=== PATIENT | female | born 1965 ===

== ENCOUNTER → 2016-08-21 | Day surgery (SDC) | payer MEDICARE, OTHER ==
--- NOTE | 2016-08-17 13:02 | Pre-Procedure Note/Attestation ---
Pre-Procedure Note/Attestation Complete Prior to Procedure Planned Procedure: bilateral Procedure Narrative: 1- Ptosis correction, upper lids 2- Entropion correction upper lids 3- Blepharoplasty, upper lids Indications for Procedure Pre-Operative Diagnosis: 1- Ptosis ,upper lids 2- Entropion, upper lids 3- Blepharochalasis and dermatochalasis upper lids Attestation I attest that I discussed the nature of the procedure; its benefits; risks and complications; and alternatives (and the risks and benefits of such alternatives ), prior to the procedure, with the patient (or the patient's legal plastic products sales representative). I attest that, if there was a reasonable possibility of needing a blood transfusion, the patient (or the patient's legal plastic products sales representative) was given the [facility] standardized written summary, pursuant to the Elias Raquel Blood Safety Act ([place] Health and Safety Code # 1645, as amended). I attest that I re-evaluated the patient just prior to the surgery and that there has been no change in the patient's H&P, except as documented below: DONNY SANTIZO Aug 17, 2016 13:02
[~2016-08-21] VITALS: Ht 152.4 cm; Wt 77.1 kg
[2016-08-21] VITALS (8 sets, daily range): BP systolic 102–119; BP diastolic 55–67
[~2016-08-21] MED LIST: Akten 3.5% 1ml Btl BOTH EYES ONE; Akten 3.5% 1ml Btl ONE; BIOTIN10 MG PO; Bupivacaine 0.75% 30ml vial INJ ONE; GLUCOPHAGE XR750 MG ORAL; LR 1000ml 1,000 ML IV SCH; LR 1000ml 1,000 ML IVLG SCH; Lidocaine 2% 20mg/ml/Epi 0.005mg/ml 20ml vial ONE; Maxitrol Opth Oint 3.5gm BOTH EYES ONE; Midazolam 2mg/2ml Inj ONE; NS Irrig 1000ml IRRIG ONE; NS Irrig 1000ml ONE; Povidone-Iodine 5% opth solution ONE; Sterile Water Irrig 1000ml IRRIG ONE; fentaNYL 100 mcg/2 mL IV ONE; fentaNYL 100 mcg/2 mL IV PRN
--- NOTE | 2016-08-21 10:26 | Anethesia Preoperative Eval ---
Anesthesia Pre-op PMH/ROS General Date of Evaluation: Aug 21, 2016 Time of Evaluation: 09:50 Anesthesiologist: Freddy ASA Score: ASA 3 Mallampati Score Class I : Soft palate, uvula, fauces, pillars visible Class II: Soft palate, uvula, fauces visible Class III: Soft palate, base of uvula visible Class IV: Only hard plate visible Mallampati Classification: Class II Surgeon: Debbie Diagnosis: Bilateral Ptosis Surgical Procedure: Bilateral upper blepharoplasty Allergies: Coded Allergies: No Known Allergies (Unverified , 10/11/15) Past Medical History Cardiovascular: Denies: CAD, HTN, [place], arrhythmia, other, valve dz Pulmonary: Denies: COPD, NIMCO, asthma, other Gastrointestinal/Genitourinary: Denies: CRI, ESRD, GERD, other Neurologic/Psychiatric: Denies: CVA, TIA, dementia, depression/anxiety, other Endocrine: Reports: DM, Denies: hypothyroidism, other, steroids HEENT: Denies: [place] (L), [place] (R), cataract (L), cataract (R), glaucoma, other Hematology/Immune: Denies: DVT, anemia, bleeding disorder, other Musculoskeletal/Integumentary: Denies: DDD, DJD, OA, RA, edema, other PMH Narrative: DM Anesthesia Pre-op Phys. Exam Physician Exam Last Vital Signs Date Time Temp Pulse Resp B/P Pulse Ox O2 Delivery O2 Flow Rate FiO2 08/21/16 09:47 97.3 91 20 119/56 95 Room Air Constitutional: NAD Neurologic: CN 2-12 intact Cardiovascular: RRR, no M/R/G Respiratory: CTA Gastrointestinal: S/NT/ND Airway Exam Mallampati Score: Class II MO: full ROM: full Teeth: intact Anesthesia Pre-op A/P Studies Pre-op Studies: EKG - NSR Risk Assessment & Plan Assessment: Diabetic female for upper blepharoplasty Plan: MAC, TIVA Status Change Before Surgery: No Pre-Antibiotics Drug: None SAL ONOFRE M.D. Aug 21, 2016 10:26
--- NOTE | 2016-08-21 10:27 | Immediate Post-Op Evaluation ---
Immediate Post-Op Evalulation Immediate Post-Op Evalulation Procedure: Bilateral upper blepharoplasty Date of Evaluation: Aug 21, 2016 Time of Evaluation: 11:55 IV Fluids: 350 Blood Pressure Systolic: 110 Blood Pressure Diastolic: 55 Pulse Rate: 91 Respiratory Rate: 14 O2 Sat by Pulse Oximetry: 98 Temperature (Fahrenheit): 97.1 Pain Score (1-10): 0 Nausea: No Vomiting: No Complications No complication Patient Status: awake, patent, none Hydration Status: adequate Drug: None SAL ONOFRE M.D. Aug 21, 2016 10:27
--- NOTE | 2016-08-21 11:52 | Brief Operative Note ---
Immediate Post Operative Note Operative Note Chief Complaint: Droopy eyelid, Difficulty driving and reading Pre-op Diagnosis: 1- Ptosis ,upper lids 2- Entropion, upper lids 3- Blepharochalasis and dermatochalasis upper lids Procedure: 1- Ptosis correctio, upper lids 2- Entropion correction, upper lids Post-op Diagnosis: same as pre-op Surgeon: Donny Lewis MD. Vehicle Detailer: None Additional Surgeons: None Anesthesiologist: Dr. Hayes Anesthesia: local, MAC Specimen: none Complications: none Condition: stable Estimated Blood Loss: minimal Drains: none Implant(s) used?: DONNY Burleson Aug 21, 2016 11:52
--- NOTE | 2016-08-21 11:53 | 48 Hour Post Anesthesia Eval ---
Post Anesthesia Evaluation Procedure: Bilateral upper blepharoplasty Date of Evaluation: Aug 21, 2016 Time of Evaluation: 12:30 Blood Pressure Systolic: 110 0: 57 Pulse Rate: 94 Respiratory Rate: 15 O2 Sat by Pulse Oximetry: 99 Airway: patent Nausea: No Vomiting: No Pain Intensity: 0 Hydration Status: adequate Cardiopulmonary Status: Stable Mental Status/LOC: patient returned to baseline Follow-up Care/Observations: As per surgery Post-Anesthesia Complications: No anesthetic complication Follow-up care needed: N/A SAL ONOFRE M.D. Aug 21, 2016 11:53
--- NOTE | 2016-08-21 19:26 | Discharge Summary ---
Discharge Summary Discharge Summary Discharge Summary DATE OF ADMISSION:08/21/2016 DATE OF DISCHARGE:08/21/2016 REASON FOR HOSPITALIZATION:1- ptosis upper lids 2- Entropin upper lids 3- Escar formation upper lids SURGERY PERFORMED: 1- Ptosis correction upper lids 2- Entropion correction, upper lids 3- Escar removal, upper lids CONDITION IN THE HOSPITAL:The patient tolerated the surgery without complications. DISCHARGE CONDITION: The patient was stable at discharge. DISCHARGE MEDICATIONS: 1. Tobradex eye drops one drop q.i.d, 2. Maxitrol eye ointment apply to lids bid, O 3. Keflex capsule 500 mg one PO q8h. 4- Narco 5/325 mg one PO q6h PRN per pain POSTOPERATIVE ORDERS: The patient has to rest at home. No bending, No lifting, No watching Television tonight. POSTOPERATIVE FOLLOW UP: The patient will be followed in my office tomorrow morning at 7 o'clock. DONNY SANTIZO Aug 21, 2016 19:26
--- NOTE | 2016-08-21 19:53 | Operative Note - PDOC ---
Operative Note Operative Note Operative Report DATE OF OPERATION: 08/21/2016 SURGEON: DONNY SANTIZO MD. HARMONIC ANALYST: NONE ANESTHESIOLOGIST:Elias Hayes MD. ANESTHESIA: Local and monitored anesthetic care (MAC) PREOPERATIVE DIAGNOSIS: 1. Ptosis upper lid both eyes. 2. Entropion upper lid, both eyes. 3- Keloid tisuue formation, bilaterally.. POSTOPERATIVE DIAGNOSES: 1. Ptosis upper lid, both eyes. 2. Entropion, upper lid, both eyes. 3. Keloid formation bilaterally PROCEDURES PERFORMED: 1. Ptosis repair, upper lid, both eyes. 2.Entropion repair, upper lid, both eyes. 3. Kiloid removal, bilaterally. INDICATIONS FOR THE PROCEDURE: The patient is a 50 year-old Lady with a history of hypertension, diabetes, and arthritis. The patient doesn't have any allergy to medications. She is not smoker. She is takingglcophageXR, proscarand flutamid. The patient has PCOS and resistance diabetes.She had ptosis correction and blepharoplaty on10/11/2015. Later she developed keloid and blepharoptosis and entropion upper lids bilaterally. She had developed bad scar which did not resolved with steroid injection. Therefore the patient was taken to the operation room for escarectomy and ptosis rapair. INFORMED CONSENT: The procedure, the nature of the procedure, benefits, risks, complications, and alternatives were explained to the patient in detail in his language. He voiced understanding and accepted. Complications , including but not limited to, bleeding, infection, under-correction, over-correction, dry eye , loss of vision , and even loss of the eye , were explained in detail to the patient, who voiced understanding and accepted. Because there is no alternative and the only choice is surgery, there is no alternative for this procedure. DESCRIPTION OF THE SURGERY AND FINDINGS: After explaining the complications, the patient signed the consent form, which is in the chart. Following that, the patient was taken to the operating room in a stable condition. IV sedation was given by the anesthesiologist Dr. Hayes. After adequate anesthesia and sedation had been achieved, both eyes and upper face and lower face were prepped and draped in a sterile fashion for intraocular surgery. Following that, both upper lids were anesthetized with lidocaine 2% with epinephrine. The forehead was anesthetized with lidocaine 2% and epinephrine with injection of the lidocaine to the supraorbital nerve and forehead. After adequate anesthesia and sedation had been achieved, both upper lids were marked with a marking pen. The maged was placed 10mm above the ciliary line of the skin, and then 20mm of skin was left below the eyebrow line 10. Following that the skin and escar tissue was removed, and the skin was from the orbicularis oculi using the Bovie, and hemostasis was performed. Following that, the orbicularis oculi muscle was dissected to the levator palpebrae superioris. Following that, all the three fat compartment was sculptured conservatively. Following that, the levator palpebrae were tacked on each side about 4mm. With 5-0 Vicryl, three stitches were placed in each side. Following that, a groove was created in the tarsus of the eyelid on both sides. Following that, the groove was stitched with 7-0 Vicrl, and the direction of the lashes was changed from downward to upward. Hemostasis was performed, and at the end of the procedure the upper eyelid skin was stitched with 6-0 plain gut in interrupted stitches first. Following that, with 6-0 plain gut, continuous running stitches were placed between the interrupted stitches. The patient tolerated the procedure, and the bleeding was just about 3 ML in both sides. Before the skin is closed the muscle and the subcutaneous tissues were stitched with 6-0 Vicryl. Following that, the skin was stitched with 6-0 plain but in both sides. The patient tolerated the surgery without complications, and the ectropion of the lower lids was corrected and also ptosis and entropion of the upper lids and the droopy eyebrows and eyelids was corrected. Following that, the patient was taken to the recovery room in stable condition. Postoperative orders and directions were given to the patient. Ice compress was placed on the wounds. The patient will be discharged home after stabilization. The patient will be followed in my office tomorrow morning. DONNY SANTIZO Aug 21, 2016 19:53
--- NOTE | 2016-08-25 13:48 | Pre-op HX & Phy Repo 2 SIG ---
DATE OF ADMISSION: 08/21/2016 NOTE: VERY POOR INAUDIBLE AUDIO QUALITY DATE OF EVALUATION: 08/26/2016. REASON FOR EVALUATION: I was asked by Dr. Adrian Lewis to see this 50-year-old female, who is going for elective surgery on both . Patient has ptosis bilaterally. The patient was examined. Chart was reviewed. PAST MEDICAL HISTORY/REVIEW OF SYSTEMS: Remarkable for type 2 diabetes, depression, and obesity. No history of chest pain, palpitation, or heart attack. No hard sensation. Do not sense a respiratory problem. No asthma or bronchitis. No history of hypertension or stroke. No seizures. The patient has history of depression. No renal problem. No dysuria or renal failure. No thyroid and no GI problem. PAST SURGICAL HISTORY: in October 2015, see old chart. MEDICATIONS: . ALLERGIES: Not known. FAMILY HISTORY: Father from stroke and mother with hypertension. HABITS: Denies history of smoke or alcohol habits. No street drugs. PHYSICAL EXAMINATION: GENERAL: Alert, well-developed, well-nourished female in her 50s. VITAL SIGNS: Blood pressure is 119/56, temperature 97.3 degrees, pulse 91 and regular, respirations 20, and O2 saturation is 95% on room air. SKIN: Dry and warm. No rashes. LYMPHATICS: Lymph nodes not enlarged. HEENT: Head, normocephalic. . Tongue midline. NECK: Supple. Jugular vein distention. . CHEST: No deformity or asymmetry. LUNGS: Clear. No rales or rhonchi. HEART: Sinus rhythm. No ectopy. No murmur. No S3 or S4. ABDOMEN: Soft, benign. No palpable mass. No rebound. EXTREMITIES: No edema. NEUROLOGIC: . CVA nontender. . NERVOUS SYSTEM: No asymmetry. No tremor. LABORATORY AND DIAGNOSTIC DATA: Electrocardiogram, normal sinus rhythm . Blood sugar . The patient did not eat or drink from last night . IMPRESSION: 1. Ptosis bilaterally. 2. Adult onset diabetes mellitus, type 2. 3. Depression. 4. PLAN: Blepharoplasty bilaterally by Dr. Adrian Lewis . Vital signs stable. is normal. The patient blood sugar is controlled. The patient did not eat or drink from last night. The patient . Thank you very much, Dr. Lewis, for privilege to participate presurgical care of this interesting patient. Tania Henriquez M.D. DR: ISAEL JOB#: [id number] CC:
--- NOTE | 2016-08-26 18:28 | Cardiology Report ---
APPROVED REPORT EKG Measurement Heart [id number] Normal sinus rhythm Normal ECG
== END | disposition home or self-care (01) ==
LOC: SUR 09:25
DX: H02.034 Senile entropion of left upper eyelid (principal); H02.031 Senile entropion of right upper eyelid; L91.0 Hypertrophic scar; I10 Essential (primary) hypertension; E11.9 Type 2 diabetes mellitus without complications; M19.90 Unspecified osteoarthritis, unspecified site; E28.2 Polycystic ovarian syndrome; E66.9 Obesity, unspecified; F32.9 Major depressive disorder, single episode, unspecified; F41.9 Anxiety disorder, unspecified; Z88.8 Allergy status to other drugs, medicaments and biological substances
CPT/HCPCS: 11440; 67924; 93005; J2250; J3010; J3490; 94003; 94150

== ENCOUNTER 2016-12-25 06:57 | Day surgery (SDC) | payer MEDICARE, OTHER, SELFPAY ==
--- NOTE | 2016-12-13 17:07 | Pre-Procedure Note/Attestation ---
Pre-Procedure Note/Attestation Complete Prior to Procedure Planned Procedure: left Procedure Narrative: 1. CATARACT EXTRACTION WITH PHACO AND PC IOL IMPLANTATION, LEFT EYE. Indications for Procedure Pre-Operative Diagnosis: 1. CATARACT ,LEFT EYE. Attestation I attest that I discussed the nature of the procedure; its benefits; risks and complications; and alternatives (and the risks and benefits of such alternatives ), prior to the procedure, with the patient (or the patient's legal customer success representative). I attest that, if there was a reasonable possibility of needing a blood transfusion, the patient (or the patient's legal customer success representative) was given the [facility] standardized written summary, pursuant to the Elias Raquel Blood Safety Act ([place] Health and Safety Code # 1645, as amended). I attest that I re-evaluated the patient just prior to the surgery and that there has been no change in the patient's H&P, except as documented below: DONNY SANTIZO Dec 13, 2016 17:07
--- NOTE | 2016-12-24 17:07 | Pre-Procedure Note/Attestation ---
Pre-Procedure Note/Attestation Complete Prior to Procedure Planned Procedure: left Procedure Narrative: 1-Cataract extraction with phaco and PC IOL implantation, left eye. Indications for Procedure Pre-Operative Diagnosis: 1. CATARACT ,LEFT EYE. Attestation I attest that I discussed the nature of the procedure; its benefits; risks and complications; and alternatives (and the risks and benefits of such alternatives ), prior to the procedure, with the patient (or the patient's legal inside sales representative). I attest that, if there was a reasonable possibility of needing a blood transfusion, the patient (or the patient's legal inside sales representative) was given the [facility] standardized written summary, pursuant to the Elias Raquel Blood Safety Act ([place] Health and Safety Code # 1645, as amended). I attest that I re-evaluated the patient just prior to the surgery and that there has been no change in the patient's H&P, except as documented below: DONNY SANTIZO Dec 24, 2016 17:07
[2016-12-25] VITALS (8 sets, daily range): BP systolic 107–127; BP diastolic 58–74
[~2016-12-25] VITALS: Ht 152.4 cm; Wt 79.4 kg
[2016-12-25] MEDS: Gatifloxacin Opth Solution 0.5% LEFT EYE SCH ×3 (06:00→06:10)
[~2016-12-25 06:57] MED LIST changes: -Akten 3.5% 1ml Btl BOTH EYES ONE; +Akten 3.5% 1ml Btl LEFT EYE SCH; -Akten 3.5% 1ml Btl ONE; +BSS 15ml BTL ONE; +BSS 500ml btl ONE; -Bupivacaine 0.75% 30ml vial INJ ONE; +Carbachol 0.01% Op Soln 1.5ml vial ONE; +Ciprofloxacin Opth Soln ONE; +Dexamethasone 4mg/ml vial ONE; +Diclofenac Sod 0.1% Op Soln LEFT EYE SCH; +EPINEPHrine 1mg/1ml Amp ONE; +Gatifloxacin Opth Solution 0.5% LEFT EYE SCH; -LR 1000ml 1,000 ML IV SCH; -LR 1000ml 1,000 ML IVLG SCH; +Lidocaine 1% MPF 10mg/ml 5ml ONE; -Lidocaine 2% 20mg/ml/Epi 0.005mg/ml 20ml vial ONE; -Maxitrol Opth Oint 3.5gm BOTH EYES ONE; -Midazolam 2mg/2ml Inj ONE; -NS Irrig 1000ml IRRIG ONE; -NS Irrig 1000ml ONE; +Phenylephrine 10% Opth Soln 5ml LEFT EYE SCH; +Sodium Hyaluronate 10 mg/ml 0.85ml ONE; -Sterile Water Irrig 1000ml IRRIG ONE; +Tetracaine 0.5% Opth Soln ONE; +Tropicamide 1% Opth Soln LEFT EYE SCH; +Vigamox Opth Soln LEFT EYE SCH; +acetaZOLAMIDE 125mg tab ORAL ONE; -fentaNYL 100 mcg/2 mL IV ONE; -fentaNYL 100 mcg/2 mL IV PRN
[2016-12-25] MEDS ORDERED: DiphenhydrAMINE 50mg/ml Inj ONE (07:18)
[2016-12-25] MEDS ORDERED: Diclofenac Sod 0.1% Op Soln ONE (07:20)
[2016-12-25] MEDS ORDERED: Tropicamide 1% Opth Soln ONE (07:20)
[2016-12-25] MEDS ORDERED: Phenylephrine 10% Opth Soln 5ml ONE (07:20)
[2016-12-25] MEDS ORDERED: Akten 3.5% 1ml Btl ONE (07:20)
[2016-12-25] MEDS ORDERED: Gatifloxacin Opth Solution 0.5% ONE (07:20)
[2016-12-25] MEDS: Tropicamide 1% Opth Soln LEFT EYE SCH ×3 (07:44→08:02)
[2016-12-25] MEDS: Phenylephrine 10% Opth Soln 5ml LEFT EYE SCH ×3 (07:44→08:02)
[2016-12-25] MEDS: Akten 3.5% 1ml Btl LEFT EYE SCH ×3 (07:44→08:01)
[2016-12-25] MEDS: Diclofenac Sod 0.1% Op Soln LEFT EYE SCH ×3 (07:45→08:01)
--- NOTE | 2016-12-25 07:52 | Anethesia Preoperative Eval ---
Anesthesia Pre-op PMH/ROS General Date of Evaluation: Dec 25, 2016 Anesthesiologist: Daniel Mallampati Score Class I : Soft palate, uvula, fauces, pillars visible Class II: Soft palate, uvula, fauces visible Class III: Soft palate, base of uvula visible Class IV: Only hard plate visible Mallampati Classification: Class II Surgeon: Debbie Diagnosis: Left cataract Surgical Procedure: Left cataract extraction with IOL Anesthesia History: none Family History: no anesthesia problems Allergies: Coded Allergies: No Known Allergies (Unverified , 12/24/16) Medications: see eMAR Past Medical History Cardiovascular: Denies: CAD, HTN, [place], arrhythmia, other, valve dz Pulmonary: Denies: COPD, NIMCO, asthma, other Gastrointestinal/Genitourinary: Denies: CRI, ESRD, GERD, other Neurologic/Psychiatric: Reports: depression/anxiety, Denies: CVA, TIA, dementia, other Endocrine: Reports: DM, Denies: hypothyroidism, other, steroids HEENT: Reports: cataract (L), cataract (R), Denies: [place] (L), [place] (R), glaucoma, other Hematology/Immune: Denies: DVT, anemia, bleeding disorder, other Musculoskeletal/Integumentary: Reports: OA, Denies: DDD, DJD, RA, edema, other PSxH Narrative: T&A, bilateral blepharoplasty Anesthesia Pre-op Phys. Exam Physician Exam see chart Constitutional: NAD Cardiovascular: RRR Respiratory: CTA Airway Exam Mallampati Score: Class II MO: full ROM: limited Anesthesia Pre-op A/P Labs see chart Studies Pre-op Studies: EKG - sr Risk Assessment & Plan Assessment: ASA II Plan: MAC Status Change Before Surgery: No Pre-Antibiotics Drug: N/A ISAURO HUITRON M.D. Dec 25, 2016 07:52
[2016-12-25] MEDS ORDERED: LR 1000ml 1,000 ML IVLG SCH (07:55)
[2016-12-25] MEDS ORDERED: DiphenhydrAMINE 50mg/ml Inj IVP PRN (08:00)
[2016-12-25 08:19] LABS: BASOPHILS % (AUTO) 0.8 % (0.0-2.0); LYMPHOCYTES % (AUTO) 45.4 % (20.0-45.0); MEAN CORPUSCULAR HEMOGLOBIN 30.1 PG (27.0-31.0); MEAN CORPUSCULAR HGB CONC 32.9 G/DL (32.0-36.0); MEAN CORPUSCULAR VOLUME 92 FL (80-99); MEAN PLATELET VOLUME 8.2 FL (6.5-10.1); NEUTROPHILS % (AUTO) 41.8 % (45.0-75.0); PLATELET COUNT 261 K/UL (150-450); RED BLOOD COUNT 4.24 M/UL (4.20-5.40); RED CELL DISTRIBUTION WIDTH 11.7 % (11.6-14.8); WHITE BLOOD COUNT 10.6 K/UL (4.8-10.8)
[2016-12-25 08:26] LABS: ANION GAP 13 (5-15); CALCIUM 8.3 mg/dL (8.6-10.2); CARBON DIOXIDE 20 mEQ/L (20-30); CHLORIDE 101 mEQ/L (98-107); CREATININE 0.4 mg/dL (0.5-0.9); GLOMERULAR FILTRATION RATE > 60 mL/min (>60); HEMOLYSIS 3; POTASSIUM 3.9 mEQ/L (3.4-4.9); SODIUM 134 mEQ/L (135-145)
--- NOTE | 2016-12-25 08:26 | Immediate Post-Op Evaluation ---
Immediate Post-Op Evalulation Immediate Post-Op Evalulation Procedure: Left cataract extraction with IOL Date of Evaluation: Dec 25, 2016 Time of Evaluation: 09:16 IV Fluids: 200 Blood Products: 0 Estimated Blood Loss: 0 Urinary Output: 0 Blood Pressure Systolic: 123 Blood Pressure Diastolic: 58 Pulse Rate: 103 Respiratory Rate: 16 O2 Sat by Pulse Oximetry: 97 Temperature (Fahrenheit): 97.2 Pain Score (1-10): 0 Nausea: No Vomiting: No Complications 0 Patient Status: awake, reacts, patent, none Hydration Status: adequate Drug: N/A ISAURO HUITRON M.D. Dec 25, 2016 08:26
--- NOTE | 2016-12-25 08:26 | 48 Hour Post Anesthesia Eval ---
Post Anesthesia Evaluation Procedure: Left cataract extraction with IOL Date of Evaluation: Dec 25, 2016 Blood Pressure Systolic: 118 0: 62 Pulse Rate: 101 Respiratory Rate: 16 Temperature (Fahrenheit): 97.2 O2 Sat by Pulse Oximetry: 96 Airway: patent Nausea: No Vomiting: No Pain Intensity: 0 Hydration Status: adequate Cardiopulmonary Status: at [place] Mental Status/LOC: patient returned to baseline Post-Anesthesia Complications: 0 Follow-up care needed: ready to discharge ISAURO HUITRON M.D. Dec 25, 2016 08:26
[2016-12-25] MEDS ORDERED: Lidocaine 1% MPF 10mg/ml 5ml ONE (08:30)
[2016-12-25] MEDS ORDERED: Sterile Water Irrig 1000ml IRRIG ONE (08:30)
[2016-12-25] MEDS ORDERED: Midazolam 2mg/2ml Inj ONE (08:30)
[2016-12-25] MEDS ORDERED: NS Irrig 1000ml ONE (08:30)
[2016-12-25] MEDS ORDERED: fentaNYL 100 mcg/2 mL IV ONE (08:30)
[2016-12-25] MEDS ORDERED: LR 1000ml ONE (08:30)
[2016-12-25] MEDS ORDERED: Sodium Hyaluronate 10 mg/ml 0.85ml ONE (08:54)
--- NOTE | 2016-12-25 09:15 | Discharge Summary ---
Discharge Summary Discharge Summary Discharge Summary DATE OF ADMISSION:12/25/2016 DATE OF DISCHARGE:12/25/2016 REASON FOR HOSPITALIZATION: Cataract left eye SURGERY PERFORMED: Cataract extraction with phaco and PC IOL implantation, left eye CONDITION IN THE HOSPITAL:The patient tolerated the surgery without complications. DISCHARGE CONDITION: The patient was stable at discharge. DISCHARGE MEDICATIONS: 1. Vigamox eye drops one drop q.i.d, left eye 2. Prednisolone one drop q.i.d, left eye 3. Acular, one dorop q4h, left eye POSTOPERATIVE ORDERS: The patient has to rest at home. No bending, No lifting, No watching Television tonight. POSTOPERATIVE FOLLOW UP: The patient will be followed in my office tomorrow morning at 7 o'clock. DONNY SANTIZO Dec 25, 2016 09:15
--- NOTE | 2016-12-25 09:18 | Brief Operative Note ---
Immediate Post Operative Note Operative Note Chief Complaint: Blurry vision difficulty reading and driving, left eye Pre-op Diagnosis: 1. CATARACT ,LEFT EYE. Procedure: Cataract extraction with phaco and PC IOl implantation, left eye Post-op Diagnosis: same as pre-op Surgeon: Donny Lewis MD. Ui Application Developer: None Additional Surgeons: None Anesthesiologist: Dr. Sanchez Anesthesia: MAC Specimen: none Complications: none Condition: stable Estimated Blood Loss: none Drains: none Implant(s) used?: Yes - Multifocal [id number] PC IOl implanted in the left eye without complication DONNY LEWIS Dec 25, 2016 09:17
--- NOTE | 2016-12-26 02:46 | Operative Note - Dictated ---
DATE OF OPERATION: 12/25/2016 FACILITY: [facility]. SURGEON: Adrian Lewis M.D. SURVEILLANCE INSPECTOR: None. ANESTHESIOLOGIST: Dr. Sanchez. ANESTHESIA: Monitored anesthesia care (MAC). PREOPERATIVE DIAGNOSIS: Cataract, left eye. POSTOPERATIVE DIAGNOSIS: Cataract, left eye. SURGERY PERFORMED: Cataract extraction with phacoemulsification and posterior chamber intraocular lens implantations in the left eye. INDICATION FOR SURGERY: The patient is a 51-year-old lady with history of diabetes mellitus, on metformin, hypertension, and hypercholesteremia. She is taking simvastatin, Diovan, and aspirin. She has had ptosis correction one year ago and she is happy with the result. Now, she is complaining of blurry vision in the left eye. On exam of the left eye, the cornea is clear. Anterior chamber is clean and quiet. Pupillary reflex is normal. There is no RAPD. There is 3+ nuclear sclerosis and 2+ cortical cataract. Funduscopy shows normal optic disc, normal macula, and periphery retina is flat. To improve her vision in the left eye, the cataract has to be removed and posterior chamber intraocular lens has to be implanted. INFORMED CONSENT: The nature of the surgery, risks, benefits, alternatives, and potential complications were all explained in detail to the patient. The potential complications including, but not limited to bleeding, infection, posterior capsular rupture, lens subluxation, flat anterior chamber, iris prolapse, uveitis, corneal edema, macular edema, endophthalmitis, retinal detachment, loss of vision, and even loss of the eye were all explained in detail to the patient. The patient voiced understanding and accepted all the complications. The alternatives including accommodating lenses, multifocal lenses, toric lens, and conventional cataract surgery with limbal relaxing incision (LRI) for treatment of astigmatism were all explained in detail to the patient. The patient voiced understanding and accepted all those explanation. The patient elected to have cataract surgery with insertion of a multifocal lens, ZLB00 that the patient was agree with ZLB00. DESCRIPTION OF SURGERY AND FINDINGS: Following that, the patient was taken to the operation room in a stable condition. Lidocaine gel Akten 3.5% was applied to the conjunctivae of the left eye. IV sedation was given by the anesthesiologist, Dr. Sanchez. After adequate anesthesia and sedation had been achieved, the left eye was prepped and draped in an usual and sterile fashion for intraocular surgery. Following that, a speculum was placed in the left eye. Following that, a Super Sharp knife was used to create a side port. Following that, 1% lidocaine without preservative (MPF) was injected into the anterior chamber. Following that, viscoelastic agent Healon was injected into the anterior chamber. Following that, a clear corneal temporal keratotomy was performed with a 2.8 mm keratome. Following that, viscoelastic agent was injected into the anterior chamber again. Following that, Vision Blue was injected under the viscoelastic agent to stain the anterior capsule of the lens. Following that, a new fresh clear viscoelastic agent was injected into the anterior chamber again. Under the clear viscoelastic agent, an anterior capsulotomy was performed in the fashion of capsulorrhexis beautifully. Following that, all viscoelastic agent was removed from the anterior chamber and hydrodissection and hydrodelineation was performed with balanced salt solution and the nucleus was freed in toto. Following that, viscoelastic agent was injected into the anterior chamber again. Under the viscoelastic agent, anterior capsulotomy was performed in the fashion of capsulorrhexis beautifully. Following that, viscoelastic agent was removed from the anterior chamber. Following that, using balanced salt solution, hydrodissection and hydrodelineation was performed and the nucleus was freed. Following that, new viscoelastic agent was injected into the anterior chamber to protect the endothelium of the cornea. Following that, using phacoemulsification machine in the fashion of horizontal chop, the nucleus was removed in toto. Following that, the cortical material was removed from the capsular bag with irrigation and aspiration unit and the capsular bag was polished. Following that, the capsular bag was filled with viscoelastic agent Healon. Following that, a +16 diopter ZLB00 foldable PCIOL with serial number #[id number] was inserted into the capsular bag. Using a Sinskey hook, the lens was manipulated and put in the proper position. Following that, the viscoelastic agent was removed from the anterior and posterior part of the lens and the anterior chamber was filled with balanced salt solution. The wound was hydrated with balanced salt solution. The wound was checked for leakage and there was no leakage. Vigamox eye drops were applied to the conjunctiva of the left eye. The patient tolerated the surgery without complications. At the end of the surgery, the eye was patched with a clear sterile fenestrated shield. Following that, the patient was transferred to the recovery room. In the recovery room, 125 mg Diamox was given by mouth stat. Postoperative orders and directions were given to the patient. The patient will be discharged home upon stabilization. The patient will be followed in my office tomorrow morning at 10 a.m. Adrian Lewis M.D. DR: TANIA JOB#: [id number] CC:
== END 2016-12-25 12:25 | disposition home or self-care (01) ==
LOC: SUR 06:57
DX: H26.9 Unspecified cataract (principal); E11.9 Type 2 diabetes mellitus without complications; Z79.84 Long term (current) use of oral hypoglycemic drugs; E78.00 Pure hypercholesterolemia, unspecified; M19.90 Unspecified osteoarthritis, unspecified site; E66.9 Obesity, unspecified; Z68.34 Body mass index [BMI] 34.0-34.9, adult; F32.9 Major depressive disorder, single episode, unspecified; F41.9 Anxiety disorder, unspecified
CPT/HCPCS: 36415; 66984; 80048; 81025; 82962; 85025; J0171; J1100; J1200; J2250; J3010; J7120; V2632; 94003; 94150

== ENCOUNTER 2017-02-12 07:25 | Day surgery (SDC) | payer MEDICARE, OTHER, SELFPAY ==
--- NOTE | 2017-02-08 12:46 | Pre-Procedure Note/Attestation ---
Pre-Procedure Note/Attestation Complete Prior to Procedure Planned Procedure: right Procedure Narrative: 1. CATARACT EXTRACTION WITH PHACO AND PC IOL IMPLANTATION, RIGHT EYE. 2.LIMBAL RELAXING INCISION, RIGHT EYE. Indications for Procedure Pre-Operative Diagnosis: 1. CATARACT , RIGHT EYE. 2. ASTIGMATISM, RIGHT EYE. Attestation I attest that I discussed the nature of the procedure; its benefits; risks and complications; and alternatives (and the risks and benefits of such alternatives ), prior to the procedure, with the patient (or the patient's legal lead generation representative). I attest that, if there was a reasonable possibility of needing a blood transfusion, the patient (or the patient's legal lead generation representative) was given the [place] [employer] standardized written summary, pursuant to the Elias Raquel Blood Safety Act ([place] Health and Safety Code # 1645, as amended). I attest that I re-evaluated the patient just prior to the surgery and that there has been no change in the patient's H&P, except as documented below: DONNY SANTIZO Feb 08, 2017 12:46
[2017-02-12] VITALS (7 sets, daily range): BP systolic 96–124; BP diastolic 52–67
[~2017-02-12] VITALS: Ht 152.4 cm; Wt 81.6 kg
[~2017-02-12 07:25] MED LIST changes: -Akten 3.5% 1ml Btl LEFT EYE SCH; +Akten 3.5% 1ml Btl ONE; -Ciprofloxacin Opth Soln ONE; -Diclofenac Sod 0.1% Op Soln LEFT EYE SCH; -Gatifloxacin Opth Solution 0.5% LEFT EYE SCH; +Ketorolac Tromethamine Opth Soln ONE; -Phenylephrine 10% Opth Soln 5ml LEFT EYE SCH; +Phenylephrine 10% Opth Soln 5ml ONE; -Tropicamide 1% Opth Soln LEFT EYE SCH; +Tropicamide 1% Opth Soln ONE; -Vigamox Opth Soln LEFT EYE SCH; +Vigamox Opth Soln ONE
[2017-02-12] MEDS: Vigamox Opth Soln RIGHT EYE SCH ×3 (07:39→07:50)
[2017-02-12] MEDS: Tropicamide 1% Opth Soln RIGHT EYE SCH ×3 (07:39→07:50)
[2017-02-12] MEDS: Ketorolac Tromethamine Opth Soln RIGHT EYE SCH ×3 (07:39→07:50)
[2017-02-12] MEDS: Phenylephrine 10% Opth Soln 5ml RIGHT EYE SCH ×3 (07:39→07:49)
[2017-02-12] MEDS: Akten 3.5% 1ml Btl RIGHT EYE SCH ×3 (07:39→07:50)
[2017-02-12] MEDS ORDERED: Propofol 200mg/20ml IV ONE (08:00)
[2017-02-12] MEDS ORDERED: NS Irrig 1000ml ONE (08:00)
[2017-02-12] MEDS ORDERED: Lidocaine 1% MPF 10mg/ml 5ml ONE (08:00)
[2017-02-12] MEDS ORDERED: Sterile Water Irrig 1000ml IRRIG ONE (08:00)
[2017-02-12] MEDS ORDERED: LR 1000ml ONE (08:00)
[2017-02-12] MEDS ORDERED: Alfentanil 2ml Inj ONE (08:00)
[2017-02-12] MEDS ORDERED: Midazolam 2mg/2ml Inj ONE (08:00)
[2017-02-12 08:05] LABS: LYMPHOCYTES % (AUTO) 49.5 % (20.0-45.0); MEAN CORPUSCULAR HGB CONC 33.9 G/DL (32.0-36.0); MEAN CORPUSCULAR VOLUME 91 FL (80-99); MEAN PLATELET VOLUME 7.4 FL (6.5-10.1); MONOCYTES % (AUTO) 9.5 % (1.0-10.0); NEUTROPHILS % (AUTO) 39.1 % (45.0-75.0); PLATELET COUNT 276 K/UL (150-450); RED CELL DISTRIBUTION WIDTH 12.2 % (11.6-14.8); WHITE BLOOD COUNT 12.6 K/UL (4.8-10.8)
[2017-02-12 08:10] LABS: ANION GAP 14 (5-15); CALCIUM 9.1 mg/dL (8.6-10.2); CARBON DIOXIDE 22 mEQ/L (20-30); CHLORIDE 105 mEQ/L (98-107); CREATININE 0.8 mg/dL (0.5-0.9); GLOMERULAR FILTRATION RATE > 60 mL/min (>60); HEMOLYSIS 0; SODIUM 141 mEQ/L (135-145)
[2017-02-12] MEDS ORDERED: LR 1000ml 1,000 ML IVLG SCH (08:18)
--- NOTE | 2017-02-12 08:18 | Anethesia Preoperative Eval ---
Anesthesia Pre-op PMH/ROS General Date of Evaluation: Feb 12, 2017 Time of Evaluation: 08:01 Anesthesiologist: Leslie ASA Score: ASA 3 Mallampati Score Class I : Soft palate, uvula, fauces, pillars visible Class II: Soft palate, uvula, fauces visible Class III: Soft palate, base of uvula visible Class IV: Only hard plate visible Mallampati Classification: Class II Surgeon: Debbie Diagnosis: Cat OD Surgical Procedure: Cat Ext IOL OD Anesthesia History: none Family History: no anesthesia problems Allergies: Coded Allergies: No Known Allergies (Unverified , 12/24/16) Medications: see eMAR Past Medical History Neurologic/Psychiatric: Reports: depression/anxiety Endocrine: Reports: DM HEENT: Reports: cataract (L), cataract (R) PSxH Narrative: Eye SxX4 Anesthesia Pre-op Phys. Exam Physician Exam Last Vital Signs Date Time Temp Pulse Resp B/P (MAP) Pulse Ox O2 Delivery O2 Flow Rate FiO2 02/12/17 07:47 97.7 92 19 124/62 99 Room Air Constitutional: NAD Neurologic: CN 2-12 intact Cardiovascular: RRR Respiratory: CTA Gastrointestinal: S/NT/ND Airway Exam Mallampati Score: Class II MO: full ROM: limited Teeth: intact Anesthesia Pre-op A/P Labs Hematology Test 02/12/17 07:46 White Blood Count 12.6 K/UL (4.8-10.8) H Red Blood Count 4.20 M/UL (4.20-5.40) Hemoglobin 13.0 G/DL (12.0-16.0) Hematocrit 38.3 % (37.0-47.0) Mean Corpuscular Volume 91 FL (80-99) Mean Corpuscular Hemoglobin 31.0 PG (27.0-31.0) Mean Corpuscular Hemoglobin Concent 33.9 G/DL (32.0-36.0) Red Cell Distribution Width 12.2 % (11.6-14.8) Platelet Count 276 K/UL (150-450) Mean Platelet Volume 7.4 FL (6.5-10.1) Neutrophils (%) (Auto) 39.1 % (45.0-75.0) L Lymphocytes (%) (Auto) 49.5 % (20.0-45.0) H Monocytes (%) (Auto) 9.5 % (1.0-10.0) Eosinophils (%) (Auto) 1.0 % (0.0-3.0) Basophils (%) (Auto) 1.0 % (0.0-2.0) Chemistry Test 02/12/17 07:46 Sodium Level Pending Potassium Level Pending Chloride Level Pending Carbon Dioxide Level Pending Blood Urea Nitrogen Pending Creatinine Pending Estimat Glomerular Filtration Rate Pending Glucose Level Pending Calcium Level Pending Risk Assessment & Plan Assessment: ASA 3 Plan: GA Status Change Before Surgery: Herber Godoy MD Feb 12, 2017 08:18
--- NOTE | 2017-02-12 08:20 | Immediate Post-Op Evaluation ---
Immediate Post-Op Evalulation Immediate Post-Op Evalulation Procedure: Cat Ext IOL OD Date of Evaluation: Feb 12, 2017 Time of Evaluation: 09:12 IV Fluids: 500 LR Blood Products: 0 Estimated Blood Loss: 1 Urinary Output: 0 Blood Pressure Systolic: 111 Blood Pressure Diastolic: 52 Pulse Rate: 107 Respiratory Rate: 16 O2 Sat by Pulse Oximetry: 97 Temperature (Fahrenheit): 97.8 Pain Score (1-10): 1 Nausea: No Vomiting: No Complications 0 Patient Status: awake, reacts, patent, none Hydration Status: adequate Herber Nelson MD Feb 12, 2017 08:20
--- NOTE | 2017-02-12 08:21 | 48 Hour Post Anesthesia Eval ---
Post Anesthesia Evaluation Procedure: Cat Ext IOL OD Date of Evaluation: Feb 12, 2017 Time of Evaluation: 11:21 Blood Pressure Systolic: 108 0: 52 Pulse Rate: 109 Respiratory Rate: 18 Temperature (Fahrenheit): 98.2 O2 Sat by Pulse Oximetry: 99 Airway: patent Nausea: No Vomiting: No Pain Intensity: 1 Hydration Status: adequate Cardiopulmonary Status: Stable Mental Status/LOC: patient returned to baseline Follow-up Care/Observations: 0 Post-Anesthesia Complications: 0 Follow-up care needed: ready to discharge Herber Nelson MD Feb 12, 2017 08:21
[2017-02-12] MEDS ORDERED: Metoclopramide 10mg/2ml Inj IVP PRN (08:30)
[2017-02-12] MEDS ORDERED: Midazolam 2mg/2ml Inj IVP PRN (08:30)
[2017-02-12] MEDS ORDERED: Norco 5mg/325mg tab ORAL PRN (08:30)
[2017-02-12] MEDS ORDERED: Ketorolac 60mg Inj IV PRN (08:30)
[2017-02-12] MEDS ORDERED: Atropine Inj 1mg/10ml Syr IV PRN (08:30)
[2017-02-12] MEDS ORDERED: Meperidine 25mg/0.5ml Inj (FOR RIGORS ONLY) IV PRN (08:30)
[2017-02-12] MEDS ORDERED: fentaNYL 100 mcg/2 mL IV PRN (08:30)
[2017-02-12] MEDS ORDERED: LORazepam Inj 2mg/ml 1ml IV PRN (08:30)
[2017-02-12] MEDS ORDERED: oxyCODONE HCL/Acetaminophen 5/325mg ORAL PRN (08:30)
[2017-02-12] MEDS ORDERED: Norco 7.5mg/325mg tab ORAL PRN (08:30)
[2017-02-12] MEDS ORDERED: Hydromorphone 0.5mg/0.5ml inj IVP PRN (08:30)
[2017-02-12] MEDS ORDERED: DiphenhydrAMINE 50mg/ml Inj IVP PRN (08:30)
[2017-02-12] MEDS ORDERED: Ketorolac 30mg Inj IV PRN (08:30)
--- NOTE | 2017-02-12 09:00 | Discharge Summary ---
Discharge Summary Discharge Summary Discharge Summary DATE OF ADMISSION: 02/12/2017 DATE OF DISCHARGE: 02/12/2017 REASON FOR HOSPITALIZATION: cataract, right eye SURGERY PERFORMED: Cataract extraction with phaco and PC IOL implantation, right eye CONDITION IN THE HOSPITAL:The patient tolerated the surgery without complications. DISCHARGE CONDITION: The patient was stable at discharge. DISCHARGE MEDICATIONS: 1. Vigamox eye drops one drop q.i.d, right eye 2. Prednisolone one drop q.i.d, right eye 3. Ilevro one drop qd, right eye POSTOPERATIVE ORDERS: The patient has to rest at home. No bending, No lifting, No watching Television tonight. POSTOPERATIVE FOLLOW UP: The patient will be followed in my office tomorrow morning at 7 o'clock. DONNY SANTIZO Feb 12, 2017 09:00
--- NOTE | 2017-02-12 09:04 | Brief Operative Note ---
Immediate Post Operative Note Operative Note Chief Complaint: Blurry right eye, difficulty driving and reading, right eye Pre-op Diagnosis: 1. CATARACT , RIGHT EYE. 2. ASTIGMATISM, RIGHT EYE. Procedure: Cataract extraction with phaco and PC IOl implantation, right eye Post-op Diagnosis: same as pre-op Surgeon: Donny Lewis MD Photo Equipment Technician: None Additional Surgeons: None Anesthesiologist: Dr. Nelson Anesthesia: MAC Specimen: none Complications: none Condition: stable Fluids: 500 ml Estimated Blood Loss: none Drains: none Packing: None Implant(s) used?: Yes - Multifocal PC IOL implanted in the right eye without complication DONNY LEWIS Feb 12, 2017 09:03
--- NOTE | 2017-02-12 16:46 | Pre-op HX & Phy Repo 2 SIG ---
DATE OF ADMISSION: 02/12/2017 PRESURGICAL INTERNAL MEDICINE HISTORY AND PHYSICAL Reason For Evaluation: I was asked by Dr. Adrian Lewis to see this 51-year-old female, who is going for elective surgery on the right eye, cataract. The patient has a cataract, right eye. Please see full Ophthalmology description by Dr. Adrian Lewis. Past Medical History And Review Of Systems: Remarkable for history of type 2 diabetes, obesity. No history of hypertension. Denies history of liver problems or heart attack. No history of stroke or seizures. Denies history of thyroid problem. No history of GI bleeding. No renal failure. No anemia. PAST SURGICAL HISTORY: Eye surgery in December 2016. Family History: Father has diabetes and hypertension. Mother alive and has hypertension. Present Medications: Include metformin 1000 mg at bedtime, niacin, herbal supplement. ALLERGIES: Not known. HABITS: Denies history of smoke or alcohol habits. No street drugs. PHYSICAL EXAMINATION: General: The patient is alert well-developed and well-nourished, overweight female in her 50s, in no acute distress. Vital Signs: Blood pressure 124/67, temperature 97.7, pulse 92 and regular, respirations 18, and O2 saturation 99%. SKIN: Clear. Warm and dry. No rashes. LYMPHATICS: Lymph nodes not enlarged. HEENT: Head, normocephalic. Ears, clear. Eyes, full description per Dr. Adrian Lewis. Mouth, clear and moist. No dentures. NECK: No jugular distention. Carotids +2. Trachea midline. CHEST: No deformity or asymmetry. LUNGS: Clear. No rales or rhonchi. HEART: Sinus rhythm. No ectopy. No murmur. No S3 or S4. ABDOMEN: Soft, obese. Liver and spleen not enlarged. No rebound. EXTREMITIES: No edema. No varicose veins. GENITOURINARY: Normal for gender. CVA nontender. NEUROLOGIC: No tremor. No nystagmus. No asymmetry. Laboratory And Diagnostic Data: ECG, sinus tachycardia 101 per minute. The patient did not eat or drink from 8 p.m. last night. Blood sugar 113 fasting. IMPRESSION: 1. Cataract, right eye. 2. Diabetes mellitus type 2. 3. Obesity. Plan: Cataract extraction, right eye with intraocular lens implant per Dr. Adrian Lewis. Conclusion: The patient's vital signs stable. The patient is overweight. Blood sugar is within normal limits. The patient did not eat or drink from last night, 8 p.m. The patient's condition optimized for surgery. Thank you very much, Dr. Lewis, for privilege to participate in the presurgical care of this interesting patient. Tania Henriquez M.D. DR: NATASHA JOB#: [id number] CC:
--- NOTE | 2017-02-13 12:40 | Operative Note - Dictated ---
DATE OF OPERATION: 02/12/2017 NOTE: "POOR AUDIO QUALITY" FACILITY: [facility]. SURGEON: Adrian Lewis M.D. GRAVITY PROSPECTING OPERATOR: None. ANESTHESIOLOGIST: Herber Nelson M.D. ANESTHESIA: Monitored anesthesia care (MAC). PREOPERATIVE DIAGNOSIS: Cataract, right eye. POSTOPERATIVE DIAGNOSIS: Cataract, right eye. Surgery Performed: Cataract extraction with phacoemulsification and posterior chamber intraocular lens implantation in the right eye. Indications For Surgery: The patient is a 51-year-old lady with history of diabetes mellitus on metformin and insulin, hypertension, and hypercholesterolemia. She is taking simvastatin, Diovan, aspirin, and metformin/insulin. She has had ptosis correction one year ago and she had to be . She has had cataract surgery in the left eye two months ago and she is happy with the results as well. Now she is complaining of blurry vision in the right eye. On evaluation of the right eye, the cornea is clear. Anterior chamber is clean and quiet. Pupillary reflex is normal. There is no RAPD. There is 3+ nuclear sclerosis and 2+ cortical cataract. Funduscopy showed normal optic disc, normal macula, and periphery retina is flat. To improve her vision in the right eye, the cataract has to be removed and posterior chamber intraocular lens has to be implanted. The vision has also has to be corrected with limbal relaxing incision (LRI). Informed Consent: The nature of the surgery, risks, benefits, alternatives, and potential complications were all explained in detail to the patient. The potential complications including but not limited to bleeding, infection, posterior capsular rupture, lens subluxation, flat anterior chamber, iris prolapse, uveitis, corneal edema, macular edema, endophthalmitis, retinal detachment, loss of vision, and even loss of the eye were all explained in detail to the patient. The patient voiced understanding and accepted all the complications. The alternatives including accommodating lenses, multifocal lenses, toric lens, and conventional cataract surgery with limbal relaxing incision (LRI) for treatment of astigmatism were all explained in detail to the patient. The patient voiced understanding and accepted all the above risks that are mentioned. The patient elected to have cataract surgery with the intention of multifocal lens in the right eye. Description Of Surgery And Findings: Following that, the patient was taken to the operation room in stable condition. Lidocaine gel Akten 3.5% was applied to the conjunctiva of the right eye. IV sedation was given by the anesthesiologist, Dr. Nelson. After adequate anesthesia and sedation had been achieved, the right eye was prepped and draped in sterile fashion for intraocular surgery. Following that, a speculum was placed in the right eye. Before the patient was taken to the operation room, the cornea was marked at 180 and 90 meridian. In the operation room, using a corneal marker and marking pen, the steep meridian of the cornea was marked. Following that, using a melly knife with , two parallel incisions were created on the steep meridian of the cornea. Following that, using a SuperSharp knife, a clear corneal side port was created. Following that, 1% lidocaine without preservatives (MPF) was injected into the anterior chamber. Following that, viscoelastic agent Healon was injected into the anterior chamber. Following that, a clear corneal temporal corticectomy was performed with a 2.8 mm keratome. Following that, viscoelastic agent was injected into the anterior chamber again. Following that, Vision Blue was injected under the viscoelastic agent to extend the anterior capsule of the lens. Following that, a fresh clear viscoelastic agent Healon was injected into the anterior chamber again. Under the clear viscoelastic agent, an anterior capsulotomy was performed in the fashion of capsulorrhexis beautifully. Following that, all viscoelastic agent was removed from the anterior chamber and hydrodissection and hydrodelineation was performed with balanced salt solution and the nucleus was freed anteriorly. Following that, the viscoelastic agent was injected into the anterior chamber again to protect the endothelium of the capsule. Following that, using phacoemulsification machine in the fashion of horizontal chop, the nucleus was removed in toto. Following that, using irrigation and aspiration unit, the cortical material was removed from the capsular bag and the capsular bag was polished. Following that, viscoelastic agent was removed from the anterior and posterior part of the lens. Following that, the anterior chamber was filled with balanced salt solution. The wound was hydrated with balanced salt solution. Following that, the capsular bag was filled with viscoelastic agent. Following that, a +18 diopter ZNA00 foldable PCIOL with serial #[id number] was inserted into the capsular bag. Using a Sinskey hook, the lens was manipulated and put in proper position. Following that, the viscoelastic agent was removed from the anterior and posterior part of the lens and the anterior chamber was filled with balanced salt solution. The wound was hydrated with balanced salt solution. The wound was checked for leakage. There was no leakage. Vigamox eyedrops were applied to the conjunctiva of the right eye. The patient tolerated the surgery without complications. At the end of the surgery, the eye was patched with a clear sterile fenestrated shield. Following that, the patient was transferred to the recovery room. In the recovery room, 125 mg Diamox was given by mouth stat. Postoperative orders and directions were given to the patient. The patient will be discharged home upon stabilization. The patient will be followed in my office tomorrow morning at 3 p.m. Adrian Lewis M.D. DR: Boubacar JOB#: [id number] CC:
--- NOTE | 2017-02-13 14:48 | Cardiology Report ---
APPROVED REPORT EKG Measurement Heart [id number] Sinus tachycardia Otherwise normal ECG
== END 2017-02-12 10:00 | disposition home or self-care (01) ==
LOC: SUR 07:25
DX: H25.11 Age-related nuclear cataract, right eye (principal); E11.9 Type 2 diabetes mellitus without complications; Z79.4 Long term (current) use of insulin; I10 Essential (primary) hypertension; Z79.82 Long term (current) use of aspirin; Z83.3 Family history of diabetes mellitus; Z82.49 Family history of ischemic heart disease and other diseases of the circulatory system; E66.9 Obesity, unspecified; Z68.35 Body mass index [BMI] 35.0-35.9, adult; F32.9 Major depressive disorder, single episode, unspecified; F41.9 Anxiety disorder, unspecified
CPT/HCPCS: 36415; 66984; 80048; 82962; 85025; 93005; J0171; J1100; J2250; J2704; J3490; J7120; V2632; 94003; 94150

== ENCOUNTER 2019-01-01 09:10 | Outpatient (CLI) | payer MEDICARE, OTHER ==
[~2019-01-01 09:10] MED LIST changes: -Akten 3.5% 1ml Btl ONE; -BSS 15ml BTL ONE; -BSS 500ml btl ONE; -Carbachol 0.01% Op Soln 1.5ml vial ONE; -Dexamethasone 4mg/ml vial ONE; -EPINEPHrine 1mg/1ml Amp ONE; -Ketorolac Tromethamine Opth Soln ONE; -Lidocaine 1% MPF 10mg/ml 5ml ONE; -Phenylephrine 10% Opth Soln 5ml ONE; -Povidone-Iodine 5% opth solution ONE; -Sodium Hyaluronate 10 mg/ml 0.85ml ONE; -Tetracaine 0.5% Opth Soln ONE; -Tropicamide 1% Opth Soln ONE; -Vigamox Opth Soln ONE; -acetaZOLAMIDE 125mg tab ORAL ONE
== END 2019-01-01 11:10 | disposition home or self-care (01) ==
LOC: ECT 09:10
DX: F33.2 Major depressive disorder, recurrent severe without psychotic features (principal); F60.9 Personality disorder, unspecified; F34.1 Dysthymic disorder

== ENCOUNTER 2019-01-26 05:14 | Outpatient (RCR) | payer MEDICARE, OTHER ==
[~2019-01-26] VITALS: Ht 153 cm; Wt 60.8 kg
[2019-01-26] MEDS ORDERED: Succinylcholine 20mg/ml 10ml vial ONE ×2 (05:15)
[2019-01-26] MEDS ORDERED: NS 500ML ONE ×2 (05:15)
[2019-01-26] MEDS ORDERED: Methohexital Sodium Syr 100mg/10ml IVP ONE ×2 (05:15)
[2019-01-26 11:08] VITALS: BP 100/76
[2019-01-26] MEDS ORDERED: Atropine Sulfate 0.4mg/ml inj IVP PRN (11:45)
[2019-01-26 11:46] VITALS: BP 114/58
[2019-01-26 11:51] VITALS: BP 109/63
[2019-01-26 11:56] VITALS: BP 118/54
[2019-01-26 12:01] VITALS: BP 104/44
[2019-01-26 12:35] VITALS: BP 100/76
[2019-01-28 10:40] VITALS: BP 93/62
[2019-01-28 11:00] VITALS: BP 129/53
[2019-01-28 11:05] VITALS: BP 106/65
[2019-01-28 11:10] VITALS: BP 105/57
[2019-01-28 11:15] VITALS: BP 99/54
== END 2019-01-31 | disposition home or self-care (01) ==
LOC: ECT 05:14
DX: F33.2 Major depressive disorder, recurrent severe without psychotic features (principal); F34.1 Dysthymic disorder; F60.9 Personality disorder, unspecified
CPT/HCPCS: 90870; J0330; J7040

== ENCOUNTER 2019-02-04 11:47 | Outpatient (RCR) | payer MEDICARE, OTHER ==
[~2019-02-04] VITALS: Ht 152.4 cm; Wt 60.8 kg
[2019-02-04] MEDS ORDERED: NS 500ML ONE ×2 (11:48)
[2019-02-04] MEDS ORDERED: Methohexital Sodium Syr 100mg/10ml IVP ONE ×2 (11:48)
[2019-02-04] MEDS ORDERED: Succinylcholine 20mg/ml 10ml vial ONE ×2 (11:48)
[2019-02-06 09:20] VITALS: BP 95/46
[2019-02-06 09:40] VITALS: BP 139/80
[2019-02-06 09:45] VITALS: BP 138/71
[2019-02-06 09:50] VITALS: BP 102/57
[2019-02-06 09:55] VITALS: BP 101/58
[2019-02-09] MEDS ORDERED: NS 500ML ONE (06:00)
[2019-02-09] MEDS ORDERED: Succinylcholine 20mg/ml 10ml vial ONE (06:00)
[2019-02-09] MEDS ORDERED: Methohexital Sodium Syr 100mg/10ml IVP ONE (06:00)
[2019-02-09 10:14] VITALS: BP 92/44
[2019-02-09 10:30] VITALS: BP 115/49
[2019-02-09 10:35] VITALS: BP 106/50
[2019-02-09 10:40] VITALS: BP 94/47
[2019-02-09 10:45] VITALS: BP 96/48
[2019-02-11 09:35] VITALS: BP 102/64
[2019-02-11 09:48] VITALS: BP 130/71
[2019-02-11 09:53] VITALS: BP 103/46
[2019-02-11 09:58] VITALS: BP 98/50
[2019-02-11 10:03] VITALS: BP 99/51
[2019-02-13] MEDS ORDERED: Methohexital Sodium Syr 100mg/10ml IVP ONE (06:00)
[2019-02-13] MEDS ORDERED: Succinylcholine 20mg/ml 10ml vial ONE (06:00)
[2019-02-13] MEDS ORDERED: NS 500ML ONE (06:00)
[2019-02-13 08:24] VITALS: BP 110/60
[2019-02-13 08:37] VITALS: BP 112/51
[2019-02-13 08:42] VITALS: BP 102/43
[2019-02-13 08:47] VITALS: BP 110/48
[2019-02-13 08:52] VITALS: BP 98/49
== END 2019-03-02 | disposition home or self-care (01) ==
LOC: ECT 11:47
DX: F33.2 Major depressive disorder, recurrent severe without psychotic features (principal)
CPT/HCPCS: 90870; J0330; J7040